=== PATIENT | female | born 1975 | race Caucasian/White ===

== ENCOUNTER 2021-01-26 14:54 | Outpatient (REF) | payer OTHER, SELFPAY ==
--- NOTE | 2021-01-26 13:45 | PAPFT_PTH ---
PATIENT: Rosie Romero LOC: [facility] U#:[id number] AGE/SX: 45/F ROOM: RE01/26/[address]: ETIENNE Devries : 1975 BED: DIS: 01/26/2021 SPEC #: [id number] RECD: 01/26/21 17:24 STATUS: TYRELL REDelvis #: [id number] ARNALDO: 01/26/21 13:[address]: Dalila June DEPT: [facility] Cytology RECD BY: Carmen Gomez ENTERED: 01/26/21 17:24 SP TYPE: PAPFT MARIOLA DR: Wali Doll MD Tissues: 1 - CX/ENDOCX FOR PAP SMEARS Procedures: PAP THIN PREP/UVM Screening HPV DNA PROBE Comments: [id number]
== END 2021-01-26 14:55 | disposition home or self-care (01) ==
LOC: LBN 14:54
PROVIDERS: PCP Family Medicine; Visit Provider Nurse Practitioner Family
DX: Z12.4 Encounter for screening for malignant neoplasm of cervix (principal); Z11.51 Encounter for screening for human papillomavirus (HPV)
CPT/HCPCS: 88142; 87624

== ENCOUNTER 2021-02-03 00:51 | Outpatient (CLI) | payer OTHER, SELFPAY ==
--- NOTE | 2021-02-03 08:15 | DI.MAMMO_ITS ---
EXAM: MG MAMMO SCREENING CLINICAL HISTORY: screening,Z12.39. TECHNIQUE: Bilateral full field digital CC and MLO mammographic images were obtained with 3D tomosyn thesis and utilizing computer aided detection (CAD). COMPARISON: Prior mammograms dating back to 2015, the most recent being February 2018. Prior breast ul trasound 2017 was reviewed FINDINGS: Fibroglandular tissue is moderately dense, this decreasing the sensitivity mammogram for finding in u nderlying lesions There are no new significant radiograph findings in left breast. In the right breast there is a new nodule located anteriorly measuring 6 x 5 millimeters and approxim ately 6 cm above the nipple as seen on the MLO view.. This is located lateral to the nipple. In addition, more posteriorly in the right breast there is a group of microcalcifications located 10 cm in from the nipple, slightly lateral of center. This group requires 2D spot Mag views. There is no significant architectural distortion nor skin thickening-retraction. IMPRESSION: 1. No radiographic evidence of malignancy in left breast. 2. There are 2 significant findings in the right breast. There a 6 x 5 millimeter nodule which requi res ultrasound to determine solid versus cystic. There is also microcalcification located 10 cm in f rom the nipple. This requires additional 2D Mag views including both CC Mag view and straight latera l Mag view. BI-RADS Category 0 - Assessment Incomplete: Need additional imaging evaluation Breast Density - Category C - Heterogeneously dense Breast density Category C or D implies that the patient has dense breast tissue. Dense breast tissue can make it harder to find cancer on a mammogram. Dense breast tissue is also associated with an incr eased risk of breast cancer. This information about the result of the mammogram report was provided to the patient to raise their awareness. Use this report when you speak with the patient about their risks for breast cancer, which includes their family history. At that time, you may recommend additional screening tests (Ultrasoun d or MRI) as these tests may add significant information. A negative radiographic report should not delay biopsy if a dominant or clinically suspicious mass is present. Up to ten percent of cancers are not identified on mammography. A negative report may reinforce clinical impression. Adenosis and dense breasts may obscure an underlying neoplasm. False positive reports average 6 to 10%. Patient will receive a letter notifying them of these results.
== END 2021-02-03 01:11 ==
PROVIDERS: PCP Family Medicine; Visit Provider Nurse Practitioner Family
DX: Z12.31 Encounter for screening mammogram for malignant neoplasm of breast (principal); R92.8 Other abnormal and inconclusive findings on diagnostic imaging of breast
CPT/HCPCS: 77063; 77067

== ENCOUNTER 2021-02-10 01:35 | Outpatient (CLI) | payer OTHER, SELFPAY ==
--- NOTE | 2021-02-10 | DI.US_ITS ---
EXAM: US BREAST RT COMPLETE CLINICAL HISTORY: F/U MAMMO, RT BREAST NODULE AND MICROCALCIFICATIONS. TECHNIQUE: Complete ultrasound examination of right breast was performed including all 4 quadrants a s well as the retroareolar region and axillary region. During today's study a cutaneous Beakley spot was placed over a finding at the 10 o'clock position of the right breast and thereafter the right br east remammogrammed for correlative purposes. COMPARISON: Prior mammograms were reviewed. FINDINGS: There are no significant focal ultrasound findings in the 1st, 2nd, and 3rd quadrants. In the 4th quadrant at the 10 o'clock position there are 2 findings. More peripherally there is a be nign-appearing nodule which has the appearance of a lymph node measuring 8 by 3 millimeters. Second finding at the 10 o'clock position is located 6 cm in from the nipple and is a slightly lobula sena noncalcified nodule solid nodule measuring 6 x 4 millimeters, exhibiting neutral through transmis mac. There are no findings in the immediate retroareolar region. No ipsilateral axillary adenopathy. At this point a cutaneous Beakley spot was placed over the concerning nodule at the 10 o'clock positi on and thereafter the patient was transferred to the mammogram suite to perform cc and MLO views with a cutaneous marker in place. Indeed, this showed exact correlation to the new nodule on the mammogr am. Appropriate follow-up is biopsy of this nodule. IMPRESSION: Two ultrasound findings as described above at the 10 o'clock position. One has appearance of a benig n lymph node. The other corresponds to the new nodule seen on the mammogram and is a solid 6 x 4 mil limeter nodule which will require biopsy for final histologic diagnosis. This nodule on ultrasound e xactly corresponds to the new nodule on mammography. Please note that there is also another area in the same-right breast which will require stereotactic biopsy, this being a separate group of somewhat concerning appearing microcalcifications which is loc ated 10 centimetres in from the nipple. Please see separate mammogram diagnostic report today. Appropriate follow-up is biopsy of both sites.. The microcalcification group should be performed wit h stereotactic biopsy. If the more anteriorly located nodule described above cannot be performed wit h stereotactic biopsy than ultrasound-guided core biopsy would be recommended. Findings and recommendations were discussed by myself with the patient today. She was made aware tricia t there are 2 areas in the right breast which will require biopsy. She was instructed to call her pr pee tomorrow. BI-RADS Category 4 - Suspicious Abnormality: Biopsy should be considered Breast Density - Category C - Heterogeneously dense Breast density Category C or D implies that the patient has dense breast tissue. Dense breast tissue can make it harder to find cancer on a mammogram. Dense breast tissue is also associated with an incr eased risk of breast cancer. This information about the result of the mammogram report was provided to the patient to raise their awareness. Use this report when you speak with the patient about their risks for breast cancer, which includes their family history. At that time, you may recommend additional screening tests (Ultrasoun d or MRI) as these tests may add significant information. A negative radiographic report should not delay biopsy if a dominant or clinically suspicious mass is present. Up to ten percent of cancers are not identified on mammography. A negative report may reinforce clinical impression. Adenosis and dense breasts may obscure an underlying neoplasm. False positive reports average 6 to 10%. Patient will receive a letter notifying them of these results.
--- NOTE | 2021-02-10 10:21 | DI.MAMMO_ITS ---
EXAM: MG MAMMO SCREEN CALL BACK UNI CLINICAL HISTORY: F/U MAMMO, RT BREAST NODULE AND MICROCALCIFICATIONS. TECHNIQUE: Additional spot compression and spot Mag views of the right breast were performed. In charlie jauregui, we also performed additional CC and MLO views following today's ultrasound examination where by a cutaneous Beakley spot was placed over a concerning nodule seen on ultrasound at the 10 o'clock position. COMPARISON: Prior mammograms were reviewed. Also trace ultrasound FINDINGS: The recently described new nodule in the right breast at the 10 o'clock position persists on spot com pression view. Indeed, also exactly corresponds (by Beakley spot exercise performed today)to a nodul e seen on today's ultrasound examination at 10 o'clock position. Second finding is the microcalcification group located 10 cm in from the nipple. This appears somewh at suspicious on spot Mag view. Require stereotactic biopsy IMPRESSION: There are 2 findings in the right breast which will require biopsy. Firstly, there is a microcalcification group located 10 cm in from the nipple which is somewhat suspi cious and require stereotactic biopsy. Secondly, the 10 o'clock position lobulated nodule on ultrasound exactly corresponds to the new nodul e on the mammogram (by Beakley spot exercise performed today in this department) and also requires bi opsy. If this cannot be performed with stereotactic biopsy because of its somewhat anterior location then ultrasound-guided biopsy of this finding would be required. Findings and recommendations were discussed by myself with the patient today. She was made aware tricia t she requires 2 biopsies in the right breast 2 separate locations. She was instructed to call her p rovider tomorrow BI-RADS Category 4 - Suspicious Abnormality: Biopsy should be considered Breast Density - Category C - Heterogeneously dense Breast density Category C or D implies that the patient has dense breast tissue. Dense breast tissue can make it harder to find cancer on a mammogram. Dense breast tissue is also associated with an incr eased risk of breast cancer. This information about the result of the mammogram report was provided to the patient to raise their awareness. Use this report when you speak with the patient about their risks for breast cancer, which includes their family history. At that time, you may recommend additional screening tests (Ultrasoun d or MRI) as these tests may add significant information. A negative radiographic report should not delay biopsy if a dominant or clinically suspicious mass is present. Up to ten percent of cancers are not identified on mammography. A negative report may reinforce clinical impression. Adenosis and dense breasts may obscure an underlying neoplasm. False positive reports average 6 to 10%. Patient will receive a letter notifying them of these results.
== END 2021-02-10 01:55 ==
PROVIDERS: PCP Family Medicine; Visit Provider Nurse Practitioner Family
DX: Z12.31 Encounter for screening mammogram for malignant neoplasm of breast (principal); R92.8 Other abnormal and inconclusive findings on diagnostic imaging of breast; N63.11 Unspecified lump in the right breast, upper outer quadrant
CPT/HCPCS: 76642; 77063; 77067

== ENCOUNTER 2022-03-16 21:18 | Outpatient (REF) | payer OTHER, SELFPAY ==
[2022-03-30 10:37] LABS: Fungus Smear No Fungi Seen
== END 2022-03-16 21:19 | disposition home or self-care (01) ==
LOC: LBN 21:18
PROVIDERS: PCP Family Medicine; Visit Provider Family Medicine
DX: L60.8 Other nail disorders (principal)
CPT/HCPCS: 87101; 87206

== ENCOUNTER 2022-04-13 04:23 | Outpatient (CLI) | payer OTHER, SELFPAY ==
[2022-04-13 12:48] LABS: HCT 45.2 % (36.0-46.0); HGB 14.6 g/dL (11.2-15.7); MCH 31.9 pg (27.0-33.0); MCHC 32.3 % (32.0-36.0); MCV 99 fL (80-95); MPV 10.2 fL (8.0-11.0); Platelet Count 180 10^3/uL (130-400); RBC 4.58 10^6/uL (3.93-5.22); RDW 12.1 % (11.7-14.6); RDW-SD 44.3 fL; WBC 6.02 10^3/uL (4.4-10.8)
[2022-04-13 13:16] LABS: ALT 27 U/L (14-59); AST 19 U/L (15-37); Albumin 4.1 g/dL (3.4-5.0); Alkaline Phosphatase 58 U/L (46-116); Anion Gap 11.7 mmol/L (3-11); BUN 8 mg/dL (7-18); Bilirubin, Total 0.4 mg/dL (0.2-1.0); CO2 25.3 mmol/L (21.0-32.0); CREATININE 0.8 mg/dL (0.55-1.02); Calcium 8.8 mg/dL (8.5-10.1); Calculated LDL 103 mg/dL (<100); Chloride 102 mmol/L (98-107); Cholesterol 236 mg/dL (<200); Glucose 99 mg/dL (74-106); HDL Cholesterol 124 mg/dL (40-60); Sodium 139 mmol/L (136-145); Total Protein 7.3 g/dL (6.4-8.2); Triglyceride 49 mg/dL (<150)
== END 2022-04-13 04:24 | disposition home or self-care (01) ==
LOC: LOS 04:24
PROVIDERS: Family Medicine; PCP Family Medicine; Visit Provider Family Medicine
DX: I10 Essential (primary) hypertension (principal); E78.5 Hyperlipidemia, unspecified; Z13.6 Encounter for screening for cardiovascular disorders; Z51.81 Encounter for therapeutic drug level monitoring
CPT/HCPCS: 36415; 80053; 80061; 85027

== ENCOUNTER → 2022-04-21 01:18 | Outpatient (CLI) | payer OTHER, SELFPAY ==
--- NOTE | 2022-04-21 08:14 | DI.MAMMO_ITS ---
Exam(s) MAMMO SCREENING EXAM: MAMMO SCREENING CLINICAL HISTORY: screening. TECHNIQUE: Bilateral full field digital CC and MLO mammographic images were obtained with 3D tomosyn thesis and utilizing computer aided detection (CAD). COMPARISON: Prior mammograms were reviewed, the most recent being January 2021. Prior ultrasound of January 2021 was also reviewed. This patient underwent subsequent two areas of bio psy in the right breast, 1 microcalcification group and 1 nodule, apparently negative for malignancy. FINDINGS: There has been no significant change in the appearance and distribution of the fibroglandular tissue which is again noted be moderately dense. There are 2 biopsy marker clips in the right breast, 1 at the site of prior microcalcification group (no longer seen) and the other in the previously biopsied nodule. There are no new spiculated masses nor malignant appearing microcalcification groups. There is no significant architectural distortion nor skin thickening-retraction. IMPRESSION: No radiographic evidence of malignancy. BI-RADS Category 1 - Negative Breast Density - Category C - Heterogeneously dense Breast density Category C or D implies that the patient has dense breast tissue. Dense breast tissue can make it harder to find cancer on a mammogram. Dense breast tissue is also associated with an incr eased risk of breast cancer. This information about the result of the mammogram report was provided to the patient to raise their awareness. Use this report when you speak with the patient about their risks for breast cancer, which includes their family history. At that time, you may recommend additional screening tests (Ultrasoun d or MRI) as these tests may add significant information. A negative radiographic report should not delay biopsy if a dominant or clinically suspicious mass is present. Up to ten percent of cancers are not identified on mammography. A negative report may reinforce clinical impression. Adenosis and dense breasts may obscure an underlying neoplasm. False positive reports average 6 to 10%. Patient will receive a letter notifying them of these results.
== END ==
PROVIDERS: PCP Family Medicine; Visit Provider Nurse Practitioner Family
DX: Z12.31 Encounter for screening mammogram for malignant neoplasm of breast (principal)
CPT/HCPCS: 77063; 77067

== ENCOUNTER 2022-06-27 07:50 | Emergency (ER) | payer OTHER, SELFPAY ==
[2022-06-27 07:55] VITALS: BP 142/82; PULSE 84; RESP 18; TEMP 36.9; O2SAT 99
--- NOTE | 2022-06-27 08:30 | DI.RAD_ITS ---
Exam(s) XR THUMB RT EXAM: XR THUMB RT CLINICAL HISTORY: dog leash pulled backward. TECHNIQUE: 2D digital imaging was performed. COMPARISON: No exams were available for comparison FINDINGS: Four views: No evidence of fracture or dislocation. No osseous lesions. No radiopaque foreign body. No erosion s. IMPRESSION: No significant radiographic findings. Given the history here, if there is suspicion for significant ligament injury then follow-up MRI can be performed. DATA REPOSITORY: RADIATION DOSE DELIVERED:
--- NOTE | 2022-06-27 08:36 | ED.GENADUL_ITS ---
Discharge Plan Disposition Patient Disposition: HOME Condition: Good Discharge Details Clinical Impression: Skier's thumb Primary Care Provider: Wali Doll ED Provider: Emily Lockhart Home Meds and New Rx's Prescriptions: Continued famciclovir 500 mg tablet 1,000 mg PO q d prn Qty: 20 2RF cyanocobalamin (vitamin B-12) [Vitamin B-12] 1,000 MCG tablet 1,000 mcg PO DAILY cholecalciferol (vitamin D3) 1,000 UNIT capsule 1,000 unit PO DAILY biotin 2,500 MCG capsule 2 cap PO DAILY Qty: 2 B Complex 1 EACH tablet extended release 1 ea PO DAILY Discharge Instructions Instructions: Skier's Thumb (ED) Additional Instructions: Your x-ray is reassuring here today, no evidence of fracture. However, as we discussed I am more concerned for a ligament injury which is quite consistent with how you injured your thumb. Please encourage rest, ice, elevation. Tylenol and/or ibuprofen as needed for discomfort. Please avoid any heavy lifting with the right hand. Please continue with thumb spica splint until reevaluated by orthopedics. Please call orthopedics to schedule follow-up appointment, number listed below. If you develop any new or worsening symptoms please seek care urgently once again. Referrals: Braden Lyons MD [ [facility] STAFF PHYSICIAN] - Discharge Data Discharge Date/Time-TO BE ENTERED AT DEPARTURE: 06/27/22 09:54 Medical Decision Making Patient is a pleasant [id number] 46-year-old female presenting today with chief complaint of right thumb injury. She reports that last night she was walking her small dog when the dog took off and the leash was wrapped just around her right thumb. States she pulled her thumb backwards towards the wrist. Denies other injury at the time of the incident. States that she initially began treating that this morning when she woke up it was significantly swollen and ecchymotic. States that the pain is limiting her ADLs. Denies any radiation of pain. On exam, patient is in no acute distress and appears nontoxic. 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 She has no pain at the wrist, full range of motion. 2+ distal pulses. Sensation intact in all digits. She has significant tenderness over snuffbox as well as the MCP joint. She is able to flex and extend but this does cause discomfort. No palpable deformity. No break in the skin. Concern for potential appears some injury. X-ray would be appropriate to evaluate for any potential bony abnormality. I have asked that navicular views to be obtained with the thumb x-rays as well. Patient declined any analgesics, did take ibuprofen prior to her last arrival. MPRESSION: No significant radiographic findings. Given the history here, if there is suspicion for significant ligament injury then follow-up MRI can be performed. Discussed these findings with the patient. Further evaluation shows some laxity at the UCL as well as discomfort with stress testing here. No pain with stress testing on other ligaments. This seems to be most focal and likely injury given mechanism. This will also cover if patient had any type of navicular injury is not able to be visualized on x-ray. Advised possible skiers, or any. We will fit with a thumb spica. Encourage rest, ice, elevation. Tylenol and ibuprofen as needed for discomfort. Recommend follow-up with orthopedics, referral has been given. She will call orthopedic office to schedule follow-up appointment. We discussed activities that she should avoid. Return precautions were discussed. All of her questions and concerns were addressed and she is in agreement this plan. HPI General Date/Time Provider Initiated Documentation: 06/27/22 08:27 . Limitations to Documentation: no limitations . Information obtained by: patient and RN notes reviewed . History of Present Illness 47 year old F presents to the emergency department with the chief complaint of right thumb pain, described as severe (with movement, particularly pressure on thumb, moderate at rest), Quality is described as aching, and is localized to the right and upper extremity. Patient reports no radiation. Patient started experiencing this day(s) and it has been constant. Rest improves symptom(s), Movement worsens symptoms . Patient notes no other symptoms.. Patient did receive the following treatments prior to arrival, none Related Data Home Medications Medication Instructions Recorded Confirmed biotin 2,500 mcg capsule 2 cap PO DAILY ##2 01/15/15 06/27/22 cholecalciferol (vitamin D3) 25 1,000 unit PO DAILY 01/15/15 06/27/22 mcg (1,000 unit) capsule cyanocobalamin (vitamin B-12) 1,000 mcg PO DAILY 01/15/15 06/27/22 1,000 mcg tablet (Vitamin B-12) vitamin B complex (B Complex 1 ea PO DAILY 01/29/16 06/27/22 tablet,extended release) famciclovir 500 mg tablet 1,000 mg PO q d prn #20 tab-caps 02/22/22 06/27/22 Previous Rx's Medication Instructions Recorded famciclovir 500 mg tablet 1,000 mg PO q d prn #20 tab-caps 02/22/22 Allergies Allergy/AdvReac Type Severity Reaction Status Date / Time Sulfa (Sulfonamide Allergy A CHILD Verified 07/04/22 11:10 Antibiotics) sulfamethoxazole Allergy A CHILD Verified 07/04/22 11:10 [From ] trimethoprim [From ] Allergy A CHILD Verified 07/04/22 11:10 General Stated Complaint: Orthopedic CORI: 4 Review of Systems Constitutional Constitutional: Reports as per HPI, Denies fever(s) and Denies weakness Cardiovascular Cardiovascular: Reports as per HPI Respiratory Respiratory: Reports as per HPI and Denies cough Musculoskeletal Musculoskeletal: Reports as per HPI and Denies tingling Integumentary/Breasts Skin/Breast: Reports as per HPI, Denies rash and Denies wounds Neurologic Neurologic: Reports as per HPI, Denies tingling, Denies paresthesias and Denies weakness PFSH All Active Problems (Updated 06/27/22 @ 09:41 by FAISAL Anderson) Skier's thumb (Acute) High serum high density lipoprotein (HDL) (Acute) IUD surveillance (Acute 11/22/12) Surgical History section Family History Mother No problems noted. Father No problems noted. Sister No problems noted. Brother [id number]-nmmkxs transgender person 02/04 Grandfather Heart disease Grandfather No problems noted. Grandmother Alzheimer disease Neoplasm OVARIAN Grandmother No problems noted. Son No problems noted. Social History Smoking/Tobacco Use Status: Former Tobacco Use Smoking risk assessment performed?: Yes Alcohol Intake: current Alcohol Intake frequency: a few times a week Drug use: Never Substance use type: does not use Do you feel safe at home: Yes Do you feel safe in your relationship?: Yes History History 3 Para 1 Hx # Term Pregnancies Multiple births Hx # Pregnancies Ectopic pregnancies AB induced Hx Number of Living Children AB spontaneous Exam Const General: cooperative, healthy appearing, comfortable, no acute distress, well developed and well groomed Nutritional Appearance: average body habitus and well nourished Orientation: alert and awake Resp Effort & Inspection: normal respiratory effort, able to speak in complete sentences and no respiratory distress Cardio Rate: regular rate Rhythm: regular rhythm Skin General skin exam: ecchymosis Neuro General: patient alert and patient awake Cognition: normal cognition Speech: speech normal Gait: normal gait Motor: muscle tone normal throughout Sensory Exam: no sensory deficits noted Extrem Hand/finger images: 1. Area of swelling/ecchymosis. No pain distal over thumb. 2+ distal pulses, intact capillary refill. Sensation intact. Able to flex/extend. Pain over snuffbox. No pain elsewhere about hand/wrist. Psych Appearance: grossly normal and well kempt Mental Status: mental status grossly normal Speech and Movement: speech and movement normal Course Vital Signs Vital signs: Vital Signs Temperature 36.9 C 06/27/22 07:55 Pulse 84 06/27/22 07:55 Respiratory Rate 18 06/27/22 07:55 Blood Pressure 142/82 H 06/27/22 07:55 Pulse Oximetry 99 06/27/22 07:55 Temperature 36.9 C 06/27/22 07:55 Temperature Source Temporal Artery Scan 06/27/22 07:55 Pulse 84 06/27/22 07:55 Respiratory Rate 18 06/27/22 07:55 Respiratory Effort Non-Labored 06/27/22 08:00 Blood Pressure 142/82 H 06/27/22 07:55 Blood Pressure Position Sitting 06/27/22 07:55 Pulse Oximetry 99 06/27/22 07:55 Oxygen Delivery Method Room Air 06/27/22 07:55 Oxygen Flow Rate 0 06/27/22 07:55 Lab/Test Results Lab/Test Results: POC- Test(urine) Negative PAWSS Have you Been Recently Intoxicated or Drunk Within the Last 30 days?: No Have you Ever Experienced Previous Episodes of Alcohol Withdrawal?: No Have you ever Experienced Withdrawal Seizures?: No Have you ever Experienced Delirium Tremens(DT)s?: No Have you ever Experienced Blackouts?: No Have you ever Combined Alcohol with other Downers within the last 90 days?: No Have you ever Combined Alcohol with any other Substance of Abuse during the last 90 days?: No Positive Blood Alcohol level on Presentation? [PCS.BAL]: No Evidence of Increased Autonomic Activity (i.e. HR>120, tremor, sweating, agitation, nausea)?: No Result: 0
== END 2022-06-27 09:54 | disposition home or self-care (01) ==
PROVIDERS: Emergency Provider Physician Assistant; PCP Family Medicine
DX: S60.011A Contusion of right thumb without damage to nail, initial encounter (principal); Z32.02 Encounter for pregnancy test, result negative; Z87.891 Personal history of nicotine dependence; X50.1XXA Overexertion from prolonged static or awkward postures, initial encounter; Y93.K1 Activity, walking an animal
CPT/HCPCS: 29130; 81025; 99283; 73140; 99284

== ENCOUNTER 2023-09-15 07:46 | Emergency (ER) | payer OTHER, SELFPAY ==
--- NOTE | 2023-09-15 07:54 | W.ED.GENAD ---
Discharge Plan Disposition Patient Disposition: Home Discharge Details Clinical Impression: Traumatic ecchymosis of right foot Primary Care Provider: Wali Doll ED Provider: Gilmar Panda Home Meds and New Rx's Prescriptions: Continued cyanocobalamin (vitamin B-12) [Vitamin B-12] 1,000 MCG tablet 1,000 mcg PO DAILY cholecalciferol (vitamin D3) 1,000 UNIT capsule 1,000 unit PO DAILY biotin 2,500 MCG capsule 2 cap PO DAILY Qty: 2 B Complex 1 EACH tablet extended release 1 ea PO DAILY famciclovir 500 mg tablet 1,000 mg PO q d prn Qty: 20 2RF Discharge Instructions Instructions: Foot Contusion (ED) Additional Instructions: You were seen in the emergency department for your foot pain. Your x-ray showed no visible fractures. You are being placed in a walking boot and may bear weight as tolerated. Please follow-up with your primary care provider next week for reassessment. If your pain worsens or does not improve you may benefit from a CAT scan. Please return to the emergency department if you lose sensation in your right foot or your pain becomes unmanageable. Please do not use this walking boot for more than 5 days as this can result in weakness of the other muscles in your right lower extremity. For your pain please take medications as follows: 1. Take acetaminophen (Tylenol), 1,000 mg (two 500 mg tabs) every 6 hours 2. Take ibuprofen (Advil), 400 mg every 6 hours. HPI General Date/Time Provider Initiated Documentation: 09/15/23 07:53. HPI Narrative: [facility] This is an overall very well-appearing normothermic and not tachycardic 48-year-old female with right-sided forefoot pain ecchymosis concerning for the possibility of fracture given trauma yesterday evening. We will keep patient nonweightbearing pending x-rays. No ankle tenderness to suggest benefit from ankle plain films. No head strike no loss of consciousness to suggest benefit from CT head. No pain out of proportion to suggest necrotizing soft tissue infection. No midfoot instability to suggest Lisfranc injury. No specific lateral foot pain to increase likelihood of Jimenes fracture. No lacerations to suggest open fracture. Patient declines oral analgesia as she ibuprofen prior to arrival. Will order ice and reassess following images. Anticipate nonweightbearing in a walking boot with crutches and podiatry outpatient follow-up. 8:54 AM Patient's radiographs were negative for any acute osseous abnormalities. Nonetheless given her swelling and pain I placed her in a walking boot and made her weightbearing as tolerated with crutches. O I have f asked health supervisor microfilm duplicating unit Mary to have the patient seen next week by her primary care provider for reassessment. If her pain does not improve or worsens she may benefit from a CT scan to increase sensitivity for right foot fractures. Nonetheless given reassuring plain films and her ambulatory status post injury will defer CT scan at this point time. I did res counselor the patient on dosing ibuprofen and acetaminophen. I have also counseled her to not wear her walking boot for more than 5 days as this could result in weakness and atrophy in her right lower extremity. I advised her to return to the emergency department if she developed worsening pain swelling or had any other concerns. Chronic conditions affecting the care of the patient: N/A History obtained from an outside historian: N/A External record review: [facility] [place] EMR Medications: Acetaminophen Social determinants of health affecting disposition: N/A Management discussed with: N/A Treatment/interventions considered: N/A Response to therapies provided: N/A HPI This is a 48-year-old female arriving to the emergency department via private vehicle in the setting of right foot pain. Patient reports that she was wearing slip on shoes last night when she inadvertently dropped a piece of wood on her right foot. She felt that it was painful at the time but did not think much of it. Subsequently she woke up in the middle of the night with worsening foot pain swelling. This morning she noticed ecchymoses. She took ibuprofen prior to arrival. She did not hit her ankle more marshall. She did not lose consciousness nor hit her head. She denies any other injuries. Exam General: Well-appearing in no acute distress speaking in complete sentences. Head: Normocephalic, atraumatic. Eye: Extraocular eye movements intact. No conjunctival injection. No scleral icterus. Ear, nose, mouth, throat: Grossly normal inspection. Normal voice, handling secretions normally. Neck: Trachea midline. Cardiovascular: Well-perfused distal extremities. Respiratory: Nonlabored respiration. Gastrointestinal: Nondistended abdomen. Musculoskeletal: Right foot markedly swollen compared to contralateral. Diffuse dorsal ecchymosis around forefoot and bases of toes. Foot warm and well-perfused with cap refill less than 2 seconds. 2+ PT and DP pulses. Diffuse tenderness to distal metatarsals. No midfoot instability. Skin: Normal for age and race, grossly normal temperature and turgor. No acute rash. Neurologic: Alert and appropriate, no apparent acute deficits. Psychiatric: Mood and manner are appropriate. Grooming and personal hygiene are appropriate. Related Data Home Medications Medication Instructions Recorded Confirmed biotin 2,500 mcg capsule 2 cap PO DAILY ##2 01/15/15 09/15/23 cholecalciferol (vitamin D3) 25 1,000 unit PO DAILY 01/15/15 09/15/23 mcg (1,000 unit) capsule cyanocobalamin (vitamin B-12) 1,000 mcg PO DAILY 01/15/15 09/15/23 1,000 mcg tablet (Vitamin B-12) vitamin B complex (B Complex 1 ea PO DAILY 01/29/16 09/15/23 tablet,extended release) famciclovir 500 mg tablet 1,000 mg (2 x 500 mg) PO q d prn 06/14/23 09/15/23 #20 tab-caps Previous Rx's Medication Instructions Recorded famciclovir 500 mg tablet 1,000 mg (2 x 500 mg) PO q d prn 06/14/23 #20 tab-caps Allergies Allergy/AdvReac Type Severity Reaction Status Date / Time Sulfa (Sulfonamide Allergy A CHILD Verified 09/15/23 08:07 Antibiotics) sulfamethoxazole Allergy A CHILD Verified 09/15/23 08:07 [From ] trimethoprim [From ] Allergy A CHILD Verified 09/15/23 08:07 General CORI: 4 PFSH All Active Problems (Updated 09/15/23 @ 08:52 by Gilmar Panda MD) Traumatic ecchymosis of right foot (Acute) Sprain of ulnar collateral ligament of metacarpophalangeal (MCP) joint of right thumb (Acute) High serum high density lipoprotein (HDL) (Acute) IUD surveillance (Acute 11/22/12) Surgical History section Family History Mother No problems noted. Father No problems noted. Sister No problems noted. Brother [id number] transgender person 02/04 Grandfather Heart disease Grandfather No problems noted. Grandmother Alzheimer disease Neoplasm OVARIAN Grandmother No problems noted. Son No problems noted. Social History Smoking/Tobacco Use Status: Former Tobacco Use Smoking risk assessment performed?: Yes Alcohol Intake: current Alcohol Intake frequency: a few times a week Drug use: Never Substance use type: does not use Housing: house Do you feel safe at home: Yes Do you feel safe in your relationship?: Yes History History 3 Para 1 Hx # Term Pregnancies Multiple births Hx # Pregnancies Ectopic pregnancies AB induced Hx Number of Living Children AB spontaneous
[2023-09-15 08:00] VITALS: BP 125/84; PULSE 97; RESP 18; O2SAT 96
--- NOTE | 2023-09-15 08:00 | DI.RAD_ITS ---
Exam(s) XR FOOT RT COMPLETE EXAM: XR FOOT RT COMPLETE CLINICAL HISTORY: forefoot pain status post log drop. TECHNIQUE: 2D digital imaging was performed. Three views. COMPARISON: No exams were available for comparison FINDINGS: BONES: No acute fracture is present. No bony destructive lesion is seen. JOINTS: No dislocation present. SOFT TISSUE: Swelling. IMPRESSION: Soft tissue swelling. No visible fracture. DATA REPOSITORY: RADIATION DOSE DELIVERED:
[2023-09-15 08:46] VITALS: TEMP 37.1
--- NOTE | 2023-09-15 19:42 | NUR.NOTE ---
Pt placed on care management list to see PCP Lavon for a bruised right foot to be seen next week Per ED Dr. Panda.
== END 2023-09-15 09:50 | disposition home or self-care (01) ==
PROVIDERS: Emergency Provider Emergency Medicine; PCP Family Medicine
DX: M79.671 Pain in right foot (principal); S90.31XA Contusion of right foot, initial encounter; W22.8XXA Striking against or struck by other objects, initial encounter
CPT/HCPCS: 99283; 73630

== ENCOUNTER 2023-10-27 09:04 | Outpatient (CLI) | payer OTHER, SELFPAY ==
--- NOTE | 2023-10-27 08:45 | DI.RAD_ITS ---
Exam(s) XR FOOT RT COMPLETE EXAM: XR FOOT RT COMPLETE CLINICAL HISTORY: fracture follow up. TECHNIQUE: 2D digital imaging was performed. COMPARISON: CR XR FOOT RT COMPLETE from 09/15/2023 FINDINGS: 3 views There is no evidence fracture but there is mild offset at the level of the Lisfranc joint. The media l cortex of the base of the 2nd metatarsal does not line up with the medial cortex of the middle cune iform bone. This may signify disruption of the main Lisfranc ligament. Views were apparently perfor med nonweightbearing. No osseous lesions. No pes planus. No obvious osseous tarsal coalition IMPRESSION: No obvious fractures but there is abnormality at the level the Lisfranc joint as described above. Th is may signify significant injury of the main Lisfranc ligament. Correlation with clinical findings recommended. DATA REPOSITORY: RADIATION DOSE DELIVERED:
== END 2023-10-27 09:05 | disposition home or self-care (01) ==
LOC: DIORS 09:05
PROVIDERS: PCP Family Medicine; Referring Provider Family Medicine; Visit Provider Physician Assistant
DX: M79.671 Pain in right foot (principal)
CPT/HCPCS: 73630

== ENCOUNTER 2023-11-23 13:08 | Outpatient (CLI) | payer OTHER, SELFPAY ==
--- NOTE | 2023-11-23 10:21 | DI.RAD_ITS ---
Exam(s) XR FOOT RT COMPLETE EXAM: XR FOOT RT COMPLETE CLINICAL HISTORY: F/U R FT FX. TECHNIQUE: 2D digital imaging was performed of the right foot. Three images were obtained. AP, obl ique and lateral views were obtained. COMPARISON: CT CT LOWER EXTREMITY RT WO from 10/18/2023 CR XR FOOT RT COMPLETE from 10/27/2023 FINDINGS: BONES: The patient has known fractures were much better visualized on the CT scan of the foot from . No obvious alignment abnormalities are seen when compared to the prior x-ray examination o f the foot from 10/27/2023. No new fractures are appreciated. No bony destructive lesion is seen. Th ere is an enthesophyte at the posterior patella. JOINTS: No dislocation present. SOFT TISSUE: Normal. IMPRESSION: Stable alignment of the patient's known metatarsal and tarsal bones. The fractures are not ideally v isualized on this x-ray of the foot and are better appreciated on the CT scan. A repeat CT scan of t he foot should be considered for clear correlation. DATA REPOSITORY: RADIATION DOSE DELIVERED:
== END 2023-11-23 13:09 | disposition home or self-care (01) ==
LOC: DIORS 13:08
PROVIDERS: PCP Family Medicine; Referring Provider Family Medicine; Visit Provider Physician Assistant
DX: S92.214D Nondisplaced fracture of cuboid bone of right foot, subsequent encounter for fracture with routine healing (principal); X58.XXXD Exposure to other specified factors, subsequent encounter
CPT/HCPCS: 73630

== ENCOUNTER 2023-12-21 15:33 | Outpatient (CLI) | payer OTHER, SELFPAY ==
--- NOTE | 2023-12-21 08:45 | DI.RAD_ITS ---
Exam(s) XR FOOT RT COMPLETE EXAM: XR FOOT RT COMPLETE CLINICAL HISTORY: fracture follow up. TECHNIQUE: 2D digital imaging was performed. COMPARISON: CR XR FOOT RT COMPLETE from 11/23/2023 FINDINGS: 3 views Again noted is offset of the Lisfranc joint, similar to previous, most probably implying significant injury of the main Lisfranc ligament between the medial base of the 2nd metatarsal and the lateral as pect of the medial cuneiform. There are no distinct fracture lines. Indeed, multiple fractures previously described on CT scan of 10/18/2023 can be better studied with repeat CT scan if clinically indicated. There is no pes planus. IMPRESSION: Lisfranc and other injuries as described above DATA REPOSITORY: RADIATION DOSE DELIVERED:
== END 2023-12-21 15:34 | disposition home or self-care (01) ==
LOC: DIORS 15:33
PROVIDERS: PCP Family Medicine; Visit Provider Physician Assistant
DX: S92.901D Unspecified fracture of right foot, subsequent encounter for fracture with routine healing (principal); X58.XXXD Exposure to other specified factors, subsequent encounter
CPT/HCPCS: 73630

== ENCOUNTER 2024-08-14 14:45 | Outpatient (CLI) | payer OTHER, SELFPAY ==
[2024-08-14 13:55] LABS: Abs Immature Grans 0.02 10^3/uL (0.0-0.06); Absolute Basophil Count 0.01 10^3/uL (0.0-0.2); Absolute Eosinophil Count 0.01 10^3/uL (0.0-0.7); Absolute Lymphocyte Count 0.81 10^3/uL (1.2-3.4); Absolute Monocyte Count 0.45 10^3/uL (0.1-0.8); Absolute Neutrophil Count 4.82 10^3/uL (1.2-6.7); Basophils % 0.2 %; Eosinophils % 0.2 %; HCT 41.9 % (36.0-46.0); HGB 14.6 g/dL (11.2-15.7); Immature Grans % 0.3 %; Lymphocytes % 13.2 %; MCH 32.8 pg (27.0-33.0); MCHC 34.8 % (32.0-36.0); MCV 94 fL (80-95); Monocytes % 7.4 %; Neutrophils % 78.7 %; Platelet Count 141 10^3/uL (130-400); RBC 4.45 10^6/uL (3.93-5.22); RDW 12.6 % (11.7-14.6); RDW-SD 43.5 fL; WBC 6.12 10^3/uL (4.4-10.8)
[2024-08-14 14:28] LABS: ALT 126 U/L (14-59); AST 95 U/L (15-37); Albumin 3.4 g/dL (3.4-5.0); Alkaline Phosphatase 76 U/L (46-116); Anion Gap 11.3 mmol/L (3-11); BUN 5 mg/dL (7-18); Bilirubin, Total 0.42 mg/dL (0.2-1.0); CO2 24.7 mmol/L (21.0-32.0); Calcium 8.6 mg/dL (8.5-10.1); Chloride 99 mmol/L (98-107); Estimated GFR 69.93 (mL/min/1.73m2); Glucose 160 mg/dL (74-106); Potassium 3.1 mmol/L (3.5-5.1); Sodium 135 mmol/L (136-145); Total Protein 7.6 g/dL (6.4-8.2)
== END 2024-08-14 14:46 | disposition home or self-care (01) ==
LOC: LBO 14:46
PROVIDERS: PCP Family Medicine; Visit Provider Physician Assistant
DX: J18.9 Pneumonia, unspecified organism (principal)
CPT/HCPCS: 36415; 80053; 85025

== ENCOUNTER 2024-08-14 15:11 | Outpatient (CLI) | payer OTHER, SELFPAY ==
--- NOTE | 2024-08-14 13:12 | DI.RAD_ITS ---
Exam(s) XR CHEST 2V PA LATERAL EXAM: XR CHEST 2V PA LATERAL CLINICAL HISTORY: pneumonia J18.9 TECHNIQUE: 2D digital imaging was performed of the chest. Two images were obtained. PA and lateral views were obtained. COMPARISON: No exams were available for comparison FINDINGS: MEDIASTINUM: Normal. HEART: Normal. PULMONARY VASCULATURE: Normal. LUNGS: Clear. PLEURAL SPACE: No pleural effusion or pneumothorax. BONE:Within normal limits for the patient's age. OTHER FINDINGS:Normal. IMPRESSION: No acute pulmonary findings. DATA REPOSITORY: RADIATION DOSE DELIVERED:
== END 2024-08-14 15:31 ==
LOC: DI 15:12
PROVIDERS: PCP Family Medicine; Visit Provider Physician Assistant
DX: J18.9 Pneumonia, unspecified organism (principal)
CPT/HCPCS: 71046

== ENCOUNTER 2025-08-19 13:44 | Outpatient (REF) | payer OTHER, SELFPAY ==
--- NOTE | 2025-08-19 13:20 | PAPFT_PTH ---
PATIENT: Rosie Romero LOC: [facility] U#:[id number] AGE/SX: 50/F ROOM: RE08/19/[address]: Estefany Chowdary NP : 1975 BED: DIS: 08/19/2025 SPEC #: [id number] RECD: 08/19/25 18:19 STATUS: TYRELL REDelvis #: [id number] ARNALDO: 08/19/25 13:[address]: Estefany Chowdary NP DEPT: [facility] Cytology RECD BY: Carmen Gomez ENTERED: 08/19/25 18:20 SP TYPE: PAPFT OTHR DR: Wali Doll MD Tissues: 1 - CX/ENDOCX FOR PAP SMEARS Procedures: PAP THIN PREP/UVM Screening HPV DNA PROBE Comments: [id number] (HPV 16 & 18/45)
== END 2025-08-19 13:45 | disposition home or self-care (01) ==
LOC: LBN 13:44
PROVIDERS: PCP Family Medicine; Visit Provider Nurse Practitioner Women's Health
DX: Z12.4 Encounter for screening for malignant neoplasm of cervix (principal)
CPT/HCPCS: 88142; 87624

== ENCOUNTER 2025-09-12 03:07 | Outpatient (CLI) | payer OTHER, SELFPAY ==
--- NOTE | 2025-09-12 12:45 | DI.MAMMO_ITS ---
Exam(s) MAMMO SCREENING EXAM: MAMMO SCREENING CLINICAL HISTORY: screening TECHNIQUE: Mammograms were interpreted according to the usual protocol including computer analysis with CAD system, tomosynthesis and C-view imaging. COMPARISON: 2015 through 2021 FINDINGS: The breasts are composed of heterogeneously dense fibroglandular densities, Breast Density category C. No suspicious masses or suspicious microcalcifications are seen. Biopsy marker clips are noted in the upper outer quadrant of the right breast. No skin thickening or abnormal axillary lymph nodes are seen. There has been no significant change from prior exams. IMPRESSION: BI-RADS Category 1, Negative mammogram. Yearly screening mammography is recommended. Breast Density: Category C - The breasts are heterogeneously dense, which may obscure small masses. Breast density Category C or D implies that the patient has dense breast tissue. Dense breast tissue can make it harder to find cancer on a mammogram. Dense breast tissue is also associated with an increased risk of breast cancer. This information about the result of the mammogram report was provided to the patient to raise their awareness. Use this report when you speak with the patient about their risks for breast cancer, which includes their family history. At that time, you may recommend additional screening tests (Ultrasound or MRI) as these tests may add significant information. A negative radiographic report should not delay biopsy if a dominant or clinically suspicious mass is present. Up to ten percent of cancers are not identified on mammography. A negative report may reinforce clinical impression. Adenosis and dense breasts may obscure an underlying neoplasm. False positive reports average 6 to 10%.
== END 2025-09-12 03:27 ==
LOC: DI 03:07
PROVIDERS: PCP Family Medicine; Visit Provider Nurse Practitioner Women's Health
DX: Z12.31 Encounter for screening mammogram for malignant neoplasm of breast (principal); R92.323 Mammographic fibroglandular density, bilateral breasts
CPT/HCPCS: 77063; 77067

== ENCOUNTER 2025-09-12 14:09 | Outpatient (CLI) | payer OTHER, SELFPAY ==
--- NOTE | 2025-09-12 12:38 | DI.RAD_ITS ---
Exam(s) XR LUMBAR SPINE COMPLETE EXAM: XR LUMBAR SPINE COMPLETE CLINICAL HISTORY: right low back pain with intermittent radiculopathy,m54.50. TECHNIQUE: 2D digital imaging was performed. Five views. COMPARISON: No exams were available for comparison FINDINGS: BONES: No fracture or destructive lesion. Vertebral body heights are maintained. There are endplate osteophytes at L3-4 through L5-S1. There are facet degenerative changes at L4-5 and L5-S1. DISKS: There is moderate narrowing of the L5-S1 disc space. Intervertebral disc spaces are maintained. ALIGNMENT: Mild dextro rotoscoliosis. No spondylolisthesis. SOFT TISSUE: IUD IMPRESSION: Degenerative changes, greatest at L5-S1. DATA REPOSITORY: RADIATION DOSE DELIVERED:
== END 2025-09-12 14:29 ==
LOC: DI 14:09
PROVIDERS: PCP Nurse Practitioner Family; Visit Provider Nurse Practitioner Family
DX: M54.50 Low back pain, unspecified (principal); M51.370 Other intervertebral disc degeneration, lumbosacral region with discogenic back pain only
CPT/HCPCS: 72110

== ENCOUNTER 2025-09-12 14:09 | Outpatient (CLI) | payer OTHER, SELFPAY ==
[2025-09-12 12:24] LABS: HCT 42.2 % (36.0-46.0); HGB 14.6 g/dL (11.2-15.7); MCH 31.9 pg (27.0-33.0); MCHC 34.6 % (32.0-36.0); MCV 92 fL (80-95); MPV 9.1 fL (8.0-11.0); Platelet Count 202 10^3/uL (130-400); RBC 4.58 10^6/uL (3.93-5.22); RDW 13.1 % (11.7-14.6); RDW-SD 44.2 fL; WBC 6.68 10^3/uL (4.4-10.8)
[2025-09-12 12:48] LABS: Hemoglobin A1C 4.7 % (<5.7)
[2025-09-12 13:39] LABS: ALT 50 U/L (14-59); AST 34 U/L (15-37); Albumin 3.9 g/dL (3.4-5.0); Alkaline Phosphatase 83 U/L (46-116); Anion Gap 12.0 mmol/L (3-11); BUN 10 mg/dL (7-18); Bilirubin, Total 0.6 mg/dL (0.2-1.0); CO2 24.0 mmol/L (21.0-32.0); Calcium 8.8 mg/dL (8.5-10.1); Calculated LDL 75 mg/dL (<100); Chloride 101 mmol/L (98-107); Cholesterol 225 mg/dL (<200); Estimated GFR 106.62 (mL/min/1.73m2); Glucose 130 mg/dL (74-106); HDL Cholesterol 135 mg/dL (>or=50); Potassium 4.0 mmol/L (3.5-5.1); Sodium 137 mmol/L (136-145); TSH (W/Ref FT4) 1.70 uIU/mL (0.36-3.74); Total Protein 6.9 g/dL (6.4-8.2); Triglyceride 76 mg/dL (<150)
[2025-09-13 09:28] LABS: HIV-1/2 Ag & Ab Screen Negative (Negative)
[2025-09-15 11:31] LABS: HBs Antibody, Quant >1000.0 mIU/mL (See Note); Hepatitis B Surface Antigen Negative (Negative)
[2025-09-15 11:34] LABS: Hepatitis C Ab w Rflx HCV PCR Negative (Negative)
== END 2025-09-12 14:10 | disposition home or self-care (01) ==
LOC: LBO 14:09
PROVIDERS: PCP Nurse Practitioner Family; Visit Provider Nurse Practitioner Family
DX: E78.5 Hyperlipidemia, unspecified (principal); Z00.00 Encounter for general adult medical examination without abnormal findings; Z11.59 Encounter for screening for other viral diseases; Z11.4 Encounter for screening for human immunodeficiency virus [HIV]
CPT/HCPCS: 36415; 80053; 80061; 85027; 86704; 86706; 86803; 87340; 87389; 83036; 84443

== ENCOUNTER → 2025-10-22 01:08 | Outpatient (CLI) | payer OTHER, SELFPAY ==
--- NOTE | 2025-10-22 08:45 | DI.MRI_ITS ---
Exam(s) MR LUMBAR SPINE WO EXAM: MR LUMBAR SPINE WO CLINICAL HISTORY: lumbar radiculopathy,m54.16. TECHNIQUE: Multiplanar multisequence MRI of the Lumbar spine was performed. COMPARISON: CR XR LUMBAR SPINE COMPLETE from 09/12/2025 FINDINGS: Bones: The last intervertebral disc space is designated the L5/S1 level for the numbering purpose of this examination. The vertebral body heights are well maintained. Alignment is satisfactory. There are degenerative endplate signal changes at L5-S1. Cord: It is of normal size and signal intensity. T12-L1: No disc herniations or bulges are present. No central spinal canal or neural foraminal stenosis. L1-2: No disc herniations or bulges are present. No central spinal canal or neural foraminal stenosis. L2-3: There is an eccentric disc bulge to the right laterally with mild narrowing of the right neural foramen. There is no central spinal canal or left neural foraminal stenosis. L3-4: No disc herniations or bulges are present. No central spinal canal or neural foraminal stenosis. L4-5: No disc herniations or bulges are present. No central spinal canal or neural foraminal stenosis. L5-S1: There is a disc bulge eccentric to the right and extending into the right neural foramen. There is mild right neural foraminal stenosis. There are degenerative changes of the facets seen. There is no significant central spinal canal or left neural foraminal stenosis. Soft tissues: The visualized SI joints and sacrum are well maintained. The paraspinal soft tissues are unremarkable. IMPRESSION: There are right lateral disc herniations at L2-3 at L5-S1 causing mild right neural foraminal stenosis at each of these levels. DATA REPOSITORY:
== END ==
LOC: DI 01:09
PROVIDERS: PCP Nurse Practitioner Family; Visit Provider Nurse Practitioner Family
DX: M54.16 Radiculopathy, lumbar region (principal)
CPT/HCPCS: 72148